=== PATIENT | male | born 1990 | race Caucasian/White ===

== ENCOUNTER 2020-12-31 16:29 | Emergency (ER) | payer MEDICAID ==
[~2020-12-31] VITALS: Ht 175.3 cm; Wt 77.0 kg
[2020-12-31 16:57] LABS: BASOPHILS % 0.2 % (0.0-2.0); EOSINOPHILS % 0.1 % (0.0-5.0); HEMATOCRIT. 36.1 % (42.0-52.0); HEMOGLOBIN. 12.2 g/dL (14.0-18.0); LYMPHOCYTES % 8.7 % (20.0-50.0); MEAN CORPUSCULAR HEMOGLOBIN 29.1 pg (28.0-32.0); MEAN CORPUSCULAR VOLUME 86.2 fL (80.0-94.0); MEAN PLATELET VOLUME 11.3 fl (7.4-10.4); PLATELET 151 x1000/uL (130-400); RED BLOOD CELL COUNT 4.19 mill/uL (4.7-6.1); RED CELL DISTRIBUTION WIDTH 13.4 % (11.6-14.6)
[2020-12-31 17:00] LABS: CHLORIDE 107 mEq/L (98-107)
[2020-12-31 17:04] LABS: INR 1.1; PROTHROMBIN TIME 11.6 sec (9.6-11.0)
[2020-12-31] MEDS ORDERED: IOHEXOL-350 100 ML BOTTLE ONE (17:54)
[2020-12-31] MEDS ORDERED: TETANUS, DIPHTHERIA, PERTUSSIS VAC/PF 0.5ML (>7YR OLD) IM ONE (18:30)
[2021-01-01 01:12] VITALS: BP 130/68
== END 2021-01-01 02:07 | disposition short-term general hospital (02) ==
LOC: ER 16:29
DX: S31.010A Laceration without foreign body of lower back and pelvis without penetration into retroperitoneum, initial encounter (principal); S51.812A Laceration without foreign body of left forearm, initial encounter; S41.111A Laceration without foreign body of right upper arm, initial encounter; D62 Acute posthemorrhagic anemia; R77.8 Other specified abnormalities of plasma proteins; Z23 Encounter for immunization; X99.9XXA Assault by unspecified sharp object, initial encounter; Y93.89 Activity, other specified; Y92.89 Other specified places as the place of occurrence of the external cause
CPT/HCPCS: 36415; 71045; 71260; 74177; 80053; 84484; 85025; 85610; 90471; 90715; 93005; 99285; Q9967; Z7610

== ENCOUNTER 2025-08-15 17:38 | Emergency (ER) | payer MEDICAID, OTHER ==
[~2025-08-15] VITALS: Ht 175.3 cm; Wt 75.0 kg
[2025-08-15 17:53] VITALS: BP 136/72; PULSE 122; RESP 18; TEMP 98.7; O2SAT 99
== END 2025-08-15 18:00 ==
LOC: ER 17:38
DX: F15.129 Other stimulant abuse with intoxication, unspecified (principal)
CPT/HCPCS: 99283